=== PATIENT | female | born 1980 | race Caucasian/White ===

== ENCOUNTER → 2021-01-18 14:31 | Outpatient (CLI) | payer SELFPAY ==
--- NOTE | 2021-01-18 14:37 | CT_ITS ---
EXAM: CT CHEST, ABDOMEN AND PELVIS WITH INTRAVENOUS CONTRAST CLINICAL INDICATION: restaging vulvar cancer recurrence TECHNIQUE: Helically acquired images were obtained of the chest, abdomen and pelvis with intravenous contrast. This CT exam was performed using one or more of the following dose reduction techniques: automated exposure control, adjustment of the mA and/or kV according to patient size, and/or use of iterative reconstruction technique. This report was created using [employer] report generation technology. CONTRAST: 100 mL [id number] COMPARISON: None available. FINDINGS: CHEST: LUNGS AND PLEURAL SPACES: Unremarkable. No mass. No consolidation or edema. No pleural effusion or thickening. No pneumothorax. HEART: Unremarkable. Heart size is normal. No pericardial effusion. MEDIASTINUM: Unremarkable. No mediastinal or hilar adenopathy. Esophagus is unremarkable. No hiatal hernia. THYROID: Subcentimeter cyst of the right thyroid lobe. No required imaging follow-up needed given high likelihood of benign nature. ABDOMEN: LIVER: Unremarkable. Homogeneous. No focal mass. GALLBLADDER AND BILE DUCTS: Unremarkable. No calcified gallstones. No gallbladder distention or wall edema. No intra- or extrahepatic biliary ductal dilation. PANCREAS: Unremarkable. No focal cystic or solid mass. SPLEEN: Unremarkable. Normal size without focal cystic or solid mass. ADRENALS: Unremarkable. No nodules. KIDNEYS AND URETERS: Unremarkable. Normal renal size and position. No hydronephrosis. STOMACH AND BOWEL: Food residue in stomach. No stomach or bowel distention. No focal inflammatory change. Food residue in the colon. PELVIS: APPENDIX: No evidence of acute appendicitis. BLADDER: Unremarkable. REPRODUCTIVE: Mixed density (with fat attenuation) mass of the left pelvis measuring 4.5 x 3.5 cm likely represents an ovarian dermoid CHEST, ABDOMEN and PELVIS: INTRAPERITONEAL SPACE: Unremarkable. No ascites or other fluid collection. No free air. BONES/JOINTS: Unremarkable. No suspicious lytic or blastic abnormality. SOFT TISSUES: Lobular soft tissue thickening of the perineum/vulva with soft tissue skin thickening extending into the bilateral inguinal creases. No consuelo bony destruction. There is soft tissue density abutting the right femoral artery and nearly effacing the left femoral artery (image 120 of series 3). The soft tissue density extends along the left iliac veins along the left psoas muscle to the level of the left iliac artery bifurcation (image 18 series 3). No discrete abdominal or pelvic wall hernia. VASCULATURE: There is a filling defect in the proximal left femoral vein (image 4 series 4) suspicious for deep vein thrombosis, likely due to venous compression in the left inguinal region. There is a filling defect in the right common femoral vein on image 111 of series 3. Aorta is non-dilated. No aortic dissection. No obvious central pulmonary embolism although this study was not performed with the pulmonary embolism protocol. LYMPH NODES: Enhancing adenopathy of the bilateral iliac chains are identified on the left more than right side measuring up to 2.2 x 3.7 cm (image 111 series 3). Calcified lymph nodes of the left hilum and left hilum. Retroperitoneal adenopathy measures up to 2.0 x 3.2 cm on image 70 of series 3. TUBES, LINES AND DEVICES: Right arm PICC terminates in the SVC. CT/CT Chest, Abd, Pel w/Contrast IMPRESSION: 1. Lobular soft tissue mass of the perineum/vulva extending into the bilateral inguinal creases, encasing left more than right femoral vessels. Left more than right iliac chain and retroperitoneal adenopathy suspicious for metastasis. Recommend comparison to prior imaging studies. 2. There is a filling defect in the proximal left (and possibly right) femoral vein (image 4 series 4) suspicious for deep vein thrombosis, likely due to venous compression involving the left iliofemoral vein. 3. Left pelvic/ovarian dermoid tumor. Electronically Signed: Lior Sandy MD ([place]) at 15:46 EDT , Service support ,
[2021-01-18] MEDS: 0.9% Saline Lock 10 ML Syringe IV (14:55)
== END ==
PROVIDERS: PCP Legal Medicine; Referring Provider Student in an Organized Health Care Education/Training Program; Visit Provider Student in an Organized Health Care Education/Training Program
DX: C51.9 Malignant neoplasm of vulva, unspecified (principal)
CPT/HCPCS: 71260; 74177; Q9967; A4216